=== PATIENT | female | born 1950 | race Caucasian/White ===

== ENCOUNTER 2016-12-27 16:36 | Emergency (ER) | payer OTHER ==
[~2016-12-27] VITALS: Ht 157.5 cm; Wt 88.5 kg
[~2016-12-27 16:36] MED LIST: ASPI-664 PO; LEVO50TA74 PO; LISI20TA11 PO; NAPR-260 PO; NAPR-688 PO
[2016-12-27 17:12] VITALS: Ht 157.5 cm; Wt 88.5 kg
[2016-12-27] MEDS ORDERED: ALBUTEROL 0.083% (NEB) 2.5 MG/3 ML AMP HHN STA (18:54)
[2016-12-27] MEDS ORDERED: IPRATROPIUM (NEB) 0.5 MG/2.5 ML AMP HHN ONE (19:00)
--- NOTE | 2016-12-27 19:06 | ERD ---
ER Documentation Chief Complaint Date/Time DATE: 12/27/16 TIME: 18:56 Chief Complaint Pt with cough and fever and slight wheezing. HPI 66-year-old female who presents to the emergency room for productive (greenish) cough for almost 2 weeks. She also reports low-grade fever at home. She went to her primary care physician last Tuesday and was told that she has flu, given Tamiflu for 5 days with no relief. Denies headache, loss of consciousness, dizziness, blurry vision, changes in vision, photophobia, facial pain, ear pain, throat pain, difficulty swallowing, neck pain, shoulder pain, chest pain, hemoptysis, abdominal pain, back pain, loss of appetite, nausea, vomiting, hematochezia, diarrhea, constipation, urinary symptoms, , the possibility of being , bladder and bowel incontinences, extremity weakness, extremity tenderness, numbness or tingling sensation, difficulty walking, recent travel, recent exposure to illness. Allergy: No known drug allergies PMH: Hypertension, hypothyroidism. Family medical history: Denies. Medications: Lisinopril, levothyroxine, folic acid. Surgery: 2. Primary Social History: Works at [employer]. Quit smoking cigarettes 35 years ago. Stated but only smokes cigarettes for about 3 years. Denies use of alcohol, use of illegal drugs. ROS All systems reviewed and are negative except as per history of present illness. Medications Home Meds Active Scripts Naproxen* (Naprosyn*) 500 Mg Tablet, 500 MG PO BID Y for PAIN AND/OR INFLAMMATION, #30 TAB Prov:TONY OVERTON [employer] 08/27/15 Reported Medications Naproxen* (Naproxen*) 500 Mg Tablet, 500 MG PO BID Y for PAIN, TAB 04/07/15 Aspirin* (Aspirin* (EC)) 81 Mg Tablet.dr, 81 MG PO DAILY, TAB 04/07/15 Levothyroxine Sodium* (Levothyroxine Sodium*) 50 Mcg Tablet, 50 MCG PO AC BREAKFAST, TAB 04/07/15 Lisinopril* (Lisinopril*) 20 Mg Tablet, 20 MG PO DAILY, TAB 04/07/15 Allergies Allergies: Coded Allergies: No Known Allergy (Unverified , 04/07/15) PMhx/Soc History of Surgery: Yes (C SECTION X2) Anesthesia Reaction: No Hx Neurological Disorder: No Hx Respiratory Disorders: No Hx Cardiac Disorders: No Hx Psychiatric Problems: No Hx Miscellaneous Medical Probl: Yes (OBESITY) Hx Alcohol Use: No Hx Substance Use: No Hx Tobacco Use: Yes (QUIT 26 YRS AGO) Physical Exam Vitals Vital Signs Date Time Temp Pulse Resp B/P Pulse Ox O2 Delivery O2 Flow Rate FiO2 12/27/16 17:12 98.9 80 20 128/72 95 Physical Exam CONSTITUTIONAL: Well-appearing; well-nourished; in no apparent distress. HEAD: Normocephalic; atraumatic. EYES: Conjunctiva clear, sclera non-icteric, EOM intact. PERRL Ears: Hearing intact. EACs clear, TMs non-bulging, non-inflamed, translucent & mobile, ossicles normal appearance, No obstructions, no erythema, no discharges Nose: No obstructions. No polyps. No external lesions. Mild congestion. No external lesions, septum and turbinates normal. No rhinorrhea. No discharges. Frontal sinus is non-tender to palpation. Maxillary sinus is non-tender to palpation. MOUTH: Moist mucous membranes, no lesion, no obstructions, no vesicles, no thrush, patent airway Throat: Uvula in midline. Right tonsil is +1 with no erythema, no exudate. Left tonsil is +1 with no erythema, no exudate. Tolerating secretions well. Good gag reflex. Patent airway. Neck: Supple, without lesions, bruits, or adenopathy. No mass. Thyroid non- enlarged and non-tender to palpation. CHEST: Symmetrical chest. Respirations even and not labored. No retractions noted. CARDIOVASCULAR: Normal S1, S2. RRR. No murmurs, gallops. RESPIRATORY: Normal chest excursion with respiration; breath sounds clear and equal bilaterally; rhonchi, or rales. Mild wheezing bilaterally. Breathing even and unlabored. Speaking in clear, full, and complete sentences w/ ease. ABDOMEN: Normal bowel sounds normal. Soft, round, non-distended, non-guarding, no tenderness, no rebound, no organomegaly, no masses, no pulsating abdominal mass. No hernia. No peritoneal signs. : No CVA tenderness. BACK: Symmetrical shoulder. Spine is midline without deformity, tenderness. No evidence of trauma or deformity. PELVIS: Stable pelvis. No evidence of trauma or deformity. MUSCULOSKELETAL: Normal gait and station. No misalignment, asymmetry, crepitation, defects, tenderness, masses, effusions, decreased range of motion, instability, atrophy or abnormal strength or tone in the head, neck, spine, ribs , pelvis or extremities. No calf tenderness. NEUROVASCULAR: Distal pulses are present. Pedal pulse are present, equal, and normal. Capillary refills are < 2 seconds. NEUROLOGIC: Alert and oriented x4. Speaks full and clear sentences. Cranial Nerves II-XII normal. Sensation to pain, touch, and proprioception normal. Grossly unremarkable. No neurologic deficits. Romberg test is negative. PSYCHOLOGICAL: The patients mood and manner are appropriate. No hallucinations , delusions. Not SI. Not HI. Has the capacity to decide for self SKIN: Normal for age and ethnicity; warm; dry; good turgor; no apparent lesions or exudates. No rashes, hives, discoloration. Intact. Results 24 hrs Current Medications Medications (Trade) Dose Ordered Sig/Eda Route PRN Reason Start Time Stop Time Status Last Admin Dose Admin Albuterol (Proventil 0.083% (Neb)) 5 mg ONCE STAT N 12/27/16 18:54 12/27/16 18:56 DC Ipratropium [place] (Atrovent 0.02% (Neb)) 0.5 mg ONCE ONCE N 12/27/16 19:00 12/27/16 19:01 DC Procedures/MDM Examination: Please see physical examination. Disease process, medical treatment was explained to the patient. She verbalized understanding and agreed with the diagnostic tests, medical treatment, and follow-up care. Radiology: Chest x-ray Impression: Mild bibasilar atelectasis, right greater than the left. Treatment: Albuterol and Atrovent breathing treatment. Re-evaluation: Patient is alert oriented 4. Speaks full and clear sentences. Tolerating secretions. No difficulty swallowing. No drooling. Patent airway. Denies headache, dizziness, neck pain, chest pain, back pain, abdominal pain. No nausea and vomiting. Respirations even and unlabored. Lung sounds clear to auscultation. Unremarkable abdominal exam. No neurological deficits. Consultation: None. Differential diagnosis: Pneumonia versus bronchitis versus upper respiratory infection Medical decision makin-year-old female who presents to the emergency room for productive (greenish) cough for almost 2 weeks. She also reports low-grade fever at home. She went to her primary care physician last Tuesday and was told that she has flu, given Tamiflu for 5 days with no relief. Patient's complaint, patient's history about her complaint, my physical findings, diagnostic test results, my reevaluation are consistent with my final diagnosis of acute bronchitis Medications prescribed are the following: Azithromycin. Pro-air. Patient and family member are made aware of the side effects and adverse reactions of the medications prescribed. Instructed on when to seek emergent and medical attention in case allergic/anaphylactic reactions or severe side effects and or adverse reactions to medications. Patient and family member verbalized understanding. Patient instructed Instructed to follow-up with his PCP in 24-48 hours. Stated that she will make sure to see her primary care physician in the next 24-48 hours. Instructed to Call 911 for chest pain, shortness of breath. Advised to come back here in ED as soon as possible for severity of symptoms which includes but not limited to: any new symptoms; shortness of breath/difficulty of breathing; cardiovascular changes; severe gastrointestinal symptoms; signs and symptoms of bleeding and or infection; signs of compartment syndrome/neurovascular changes; neurological changes/deficits. Patient and family member verbalized understanding. Upon discharge, patient is alert and oriented x 4, speaks full and clear sentences, denies pain, has no neurological deficits, has no neurovascular deficits, difficulty of breathing. Breathing even and unlabored. Lung sounds are clear to auscultation. Not in distress. Appears comfortable. Ambulatory with steady gait. Appears satisfied with care provided here in ED. Departure Diagnosis: Primary Impression: Cough Condition: Good Additional Instructions: Patient instructed Instructed to follow-up with his PCP in 24-48 hours. Stated that she will make sure to see her primary care physician in the next 24-48 hours. Instructed to Call 911 for chest pain, shortness of breath. Advised to come back here in ED as soon as possible for severity of symptoms which includes but not limited to: any new symptoms; shortness of breath/difficulty of breathing; cardiovascular changes; severe gastrointestinal symptoms; signs and symptoms of bleeding and or infection; signs of compartment syndrome/neurovascular changes; neurological changes/deficits. Patient and family member verbalized understanding. STAR JASON Dec 27, 2016 19:05
--- NOTE | 2016-12-27 19:27 | RADRPT ---
PROCEDURE: XR Chest. CLINICAL INDICATION: Cough. TECHNIQUE: PA and Lateral views of the chest were obtained. COMPARISON: None. FINDINGS: The cardiomediastinal silhouette is within normal limits. The thoracic aorta is tortuous. Hyperinfla tion of COPD in changes of centrolobular emphysema. Mild bilateral lung base atelectasis, right gre ater than left. No signs of pleural fluid or pneumothorax are seen. The osseous structures and soft tissues are unremarkable. IMPRESSION: Mild bibasilar atelectasis, right greater than left. RPTAT: [facility] Physician Cornelio Date Time Electronically viewed and signed by Physician Cornelio on 12/27/2016 19:27 RS/
[2016-12-27] MEDS ORDERED: AZIT250T94 PO (19:59)
[2016-12-27] MEDS ORDERED: ALBU8.5H3 INH (19:59)
[2016-12-27] MEDS ORDERED: PRED20TA PO (20:00)
[2016-12-27 20:57] VITALS: BP 161/76; PULSE 81; RESP 16
== END 2016-12-27 20:57 | disposition home or self-care (01) ==
LOC: FTE 16:36
DX: R05 Cough (principal); I10 Essential (primary) hypertension; E03.9 Hypothyroidism, unspecified; E66.9 Obesity, unspecified; Z79.82 Long term (current) use of aspirin; Z68.35 Body mass index [BMI] 35.0-35.9, adult; Z87.891 Personal history of nicotine dependence
CPT/HCPCS: 71020; 94664; Z7502; Z7610